=== PATIENT | female | born 1930 | race Caucasian/White ===

== ENCOUNTER 2022-05-17 17:25 | Inpatient (IN) | payer OTHER ==
[~2022-05-17] VITALS: Ht 142.2 cm; Wt 95.7 kg
[2022-05-17 17:42] VITALS: BP 175/78
--- NOTE | 2022-05-17 18:01 | NUR ---
89YO FEMALE PT C/O ACHING LOWER ABDOMINAL PAIN [id number]. PT STATES PAIN STARTED AFTER EATING GUAVA [id number] THIS MORNING. NOTES RECENT DX OF DIVERTICULITIS BY PCP. REPORTS VOMIT X1 , DENIES BLOOD. DENIES CHEST PAIN, DIARRHEA OR RELIEF AFTER TAKING OTC NAUSEA RX. ABDOMEN NON DISTENDED OR TENDER. MILD WEAKNESS NOTED, PT AMBULATORY USING CANE. AAOX4, RSPIRATIONS EVEN AND UNLABORED. HOB POSITIONED PER COMFORT, BED RAILS UPX2. CHILEAN SPEAKING HX: HTN, DIVERTICULITIS NKA
[2022-05-17] MEDS ORDERED: LEVOFLOXACIN 500 MG/D5W PREMIX 100 ML IV ONE (18:40)
--- NOTE | 2022-05-17 19:13 | NUR ---
REPORT GIVEN TO DECEMBER RN. ALL QUESTIONS ANSWERED. TRANSFER OF CARE AT THIS TIME
[2022-05-17 19:37] LABS: BASOPHILS # (AUTO) 0.1 K/uL (0.00-0.22); BASOPHILS % (AUTO) 0.3 % (0.0-2.0); EOSINOPHILS % (AUTO) 0.2 % (0.0-4.0); HEMATOCRIT 40.2 % (36-48); HEMOGLOBIN 13.2 g/dL (12.0-16.0); LYMPHOCYTES # (AUTO) 0.5 K/uL (2.5-16.5); MEAN CORPUSCULAR HEMOGLOBIN 29 pg (27-31); MEAN CORPUSCULAR HGB CONC 33 g/dL (33-37); MEAN CORPUSCULAR VOLUME 88.1 fL (80-94); MONOCYTES # (AUTO) 0.9 K/uL (0.8-1.0); MONOCYTES % (AUTO) 5.1 % (1.7-9.3); NEUTROPHILS # (AUTO) 15.9 K/uL (1.8-7.7); NEUTROPHILS % (AUTO) 91.4 % (42.2-75.2); PLATELET COUNT (AUTO) 349 K/uL (140-450); RED BLOOD CELL COUNT(AUTO) 4.56 MIL/uL (4.20-5.40); RED CELL DISTRIBUTION WIDTH 13.6 % (11.6-13.7); WHITE BLOOD COUNT (AUTO) 17.4 K/uL (4.8-10.8)
--- NOTE | 2022-05-17 19:43 | NUR ---
PT RETURN FROM CT
[2022-05-17 20:09] LABS: ALBUMIN 3.3 g/dL (3.4-5.0); ANION GAP 13.9 (8-16); ASPARTATE AMINOTRANSFERASE 239 U/L (15-37); CARBON DIOXIDE 28.1 mmol/L (21-32); CHLORIDE 100 mmol/L (98-107); GLUCOSE 113 mg/dL (74-106); LIPASE 6955 U/L (73-393); SODIUM SERUM 138 mmol/L (136-145); TOTAL BILIRUBIN 0.8 mg/dL (0.0-1.0); UREA NITROGEN, BLOOD 22 mg/dL (7-18)
--- NOTE | 2022-05-17 20:26 | NUR ---
CALL FROM DAUGHTER LYNNE WHO LEFT CONTACT INFO FOR UPDATES:
--- NOTE | 2022-05-17 20:36 | NUR ---
urine sample collected and sent to lab.
[2022-05-17 20:40] LABS: BILIRUBIN,URINE NEGATIVE (NEGATIVE); BLOOD, URINE NEGATIVE (NEGATIVE); COLOR,URINE YELLOW (YELLOW); LEUKOCYTE ESTERASE ,URINE TRACE (NEGATIVE); NITRITE, URINE NEGATIVE (NEGATIVE); UGLUCOSE NEGATIVE (NEGATIVE)
[2022-05-17 20:46] LABS: APPEARANCE,URINE HAZY (CLEAR)
[2022-05-17 20:53] LABS: RBC,URINE NONE SEEN /HPF (0-5); WBC,URINE 0-5 /HPF (0-5)
[2022-05-17] MEDS ORDERED: CIPR500T4 PO (21:25)
--- NOTE | 2022-05-17 21:49 | NUR ---
Dr. Deng examining patient.
--- NOTE | 2022-05-17 21:53 | NUR ---
COVID-19 swabs collected and sent to lab.
[2022-05-17] MEDS ORDERED: VALS160T2 PO (22:03)
[2022-05-17] MEDS ORDERED: ASPI-1749 PO (22:03)
[2022-05-17] MEDS ORDERED: ATOR10TA PO (22:03)
[2022-05-17] MEDS ORDERED: DETLA4 PO (22:03)
--- NOTE | 2022-05-17 22:03 | NUR ---
Med-Rec reviewed.
[2022-05-17] MEDS ORDERED: POTASSIUM CHLORIDE 10 MEQ TABER PO PRN (22:55)
[2022-05-17] MEDS ORDERED: HYDROcodone/APAP 5/325 MG 1 TAB TAB PO PRN (22:55)
[2022-05-17] MEDS ORDERED: LACTATED RINGERS 1,000 ML IV ONE (22:55)
[2022-05-17] MEDS ORDERED: NACL 0.9% 1,000 ML IV SCH (22:55)
[2022-05-17] MEDS ORDERED: MORPHINE SULFATE 4 MG/ML SYR IVP PRN (22:55)
--- NOTE | 2022-05-17 22:55 | NUR ---
Started IV 22 G LAC .
--- NOTE | 2022-05-18 00:02 | NUR ---
Patient will be admitted to care of Dr. Alas. Admited to TELE. Will go to room 121A. Belongings list completed. Report to Usama.
[2022-05-18 00:50] VITALS: BP 144/60
--- NOTE | 2022-05-18 00:50 | NUR ---
RECEIVED REPORT FROM ER NURSE NADER FOR CONTINUITY OF CARE. PATIENT IS A&O X4, PRIMARY LANGUAGE DUTCH, BUT CAN SPEAK AND UNDERSTANDS KOREAN. PATIENT IS ON ROOM AIR, BREATHING IS NORMAL WITH SYMMETRICAL RISE AND FALL OF CHEST. IV IS A 22G LAC, WITH NO FLUIDS ON FILE AT THIS TIME. ADMISSION VITALS ARE: TEMP 97.7, HR 72, BP 144/60, O2 97, RR 18. PATIENT HAS CANE FROM HOME SHE USES TO AMBULATE. BED IS IN LOWEST POSITION, WHEELS LOCKED, CALL LIGHT IN PLACE.
[2022-05-18] MEDS: LACTATED RINGERS 1,000 ML IV SCH ×6 (01:30→21:23)
[2022-05-18] MEDS ORDERED: LACTATED RINGERS 1,000 ML IV SCH (02:25)
--- NOTE | 2022-05-18 03:00 | NUR ---
HAD PAGED QUARTER BACKER PHYSICIAN DR. VITA FRANKEL BECAUSE PATIENT'S EMAR SHOWS NO MEDICATIONS. DR. FRANKEL INSTRUCTED TO GIVE PATIENT LR BOLUS AND THEN GIVE LR CONTINUOUS AT 125/HR. PUT ORDER IN AND STARTED BOLUS ONCE AUTHORIZED BY PHARMACY. PATIENT IS RESTING COMFORTABLY IN BED. WILL CONTINUE TO OBSERVE PATIENT.
[2022-05-18 04:00] VITALS: BP 160/75
--- NOTE | 2022-05-18 05:00 | NUR ---
NEW LR BAG WAS HUNG AND RUN AT 125ML/HR. PATIENT USED THE BATHROOM EARLIER AND WAS SHOWN HOW TO WALK WITH THE IV POLE. PATIENT WAS INSTRUCTED TO CALL WHEN NEEDING TO USE THE BATHROOM SO RN OR SERVICES PROGRAM MANAGER CAN ASSIST. PATIENT VERBALIZED UNDERSTANDING. WILL CONTINUE TO OBSERVE PATIENT.
[2022-05-18 05:27] LABS: BASOPHILS % (AUTO) 0.2 % (0.0-2.0); HEMATOCRIT 39.3 % (36-48); HEMOGLOBIN 13.1 g/dL (12.0-16.0); LYMPHOCYTES # (AUTO) 1.7 K/uL (2.5-16.5); LYMPHOCYTES % (AUTO) 10.8 % (20.5-51.1); MEAN CORPUSCULAR HEMOGLOBIN 29 pg (27-31); MEAN CORPUSCULAR HGB CONC 33 g/dL (33-37); MEAN CORPUSCULAR VOLUME 87.2 fL (80-94); MONOCYTES # (AUTO) 0.7 K/uL (0.8-1.0); MONOCYTES % (AUTO) 4.8 % (1.7-9.3); NEUTROPHILS % (AUTO) 84.2 % (42.2-75.2); PLATELET COUNT (AUTO) 336 K/uL (140-450); RED BLOOD CELL COUNT(AUTO) 4.51 MIL/uL (4.20-5.40); RED CELL DISTRIBUTION WIDTH 13.7 % (11.6-13.7); WHITE BLOOD COUNT (AUTO) 15.4 K/uL (4.8-10.8)
[2022-05-18 05:57] LABS: ALBUMIN 3.1 g/dL (3.4-5.0); ANION GAP 12.2 (8-16); ASPARTATE AMINOTRANSFERASE 127 U/L (15-37); CARBON DIOXIDE 28.8 mmol/L (21-32); CHLORIDE 101 mmol/L (98-107); GLUCOSE 97 mg/dL (74-106); MAGNESIUM 1.7 mg/dL (1.8-2.4); SODIUM SERUM 138 mmol/L (136-145); TOTAL BILIRUBIN 0.6 mg/dL (0.0-1.0); UREA NITROGEN, BLOOD 21 mg/dL (7-18)
--- NOTE | 2022-05-18 07:30 | NUR ---
RECEIVED REPORT FROM SHIPPING AND RECEIVING OPERATOR NURSE. PT A/O X4. ABLE TO MAKE NEEDS KNOWN. C/O ABDOMINAL PAIN, HOWEVER, REFUSES PAIN MED AT THIS TIME. PT IS NPO EXCEPT MEDS. TELE, SR. LR @ 125 ML/HR ON LAC #22. NEEDS ALL MET AT THIS TIME. ALL SAFETY MEASURES IN PLACE.
--- NOTE | 2022-05-18 07:40 | NUR ---
ENDORSED TO DAY SHIFT NURSE TYREL FOR CONTINUITY OF CARE. PATIENT IS STABLE.
[2022-05-18 08:00] VITALS: BP 134/59
[2022-05-18] MEDS: ONDANSETRON 4 MG/2 ML VIAL IVP PRN (09:02)
--- NOTE | 2022-05-18 09:02 | NUR ---
PT C/O NAUSEA. FLUSH 5ML NS ON LAC #22. PRN ZOFRAN GIVEN IVP. ANOTHER 5 ML NS FLUSH. IVF RESTARTED. NEEDS ALL MET AT THIS TIME. ALL SAFETY MEASURES IN PLACE.
[2022-05-18] MEDS: DOCUSATE SODIUM 100 MG GELCAP PO SCH (09:03)
--- NOTE | 2022-05-18 10:25 | NUR ---
PATIENT HAS BEEN SCREENED AND CATEGORIZED MODERATE NUTRITION RISK. PATIENT WILL BE SEEN WITHIN 3-5 DAYS OF ADMISSION. 05/17/22-05/22/[address]
[2022-05-18] MEDS: MAGNESIUM OXIDE 400 MG TAB PO PRN (10:46)
--- NOTE | 2022-05-18 10:50 | NUR ---
PRN MAG OX GIVEN P.O. WITH HOB ELEVATED HIGH FOWLERS. TOLERATED WELL. ALL NEEDS MET AT THIS TIME. ALL SAFETY MEASURES IN PLACE.
[2022-05-18 12:00] VITALS: BP 136/66
--- NOTE | 2022-05-18 12:30 | NUR ---
DC PLANNING SW MET WITH PT AT BEDSIDE TO COMPLETE ASSESSMENT. PATIENT IS PRIMARILY CANADIAN SPEAKING AND THE LANGUAGE LINE GREENHOUSE TRANSPLANTER HARMAN WAS UTILIZED. GREENHOUSE TRANSPLANTER ANDREW, [id number]. PATIENT REPORTS RESIDING AT HOME ALONE AT THE ADDRESS LISTED ON FILE. PATIENT IDENTIFIED TORRI CONTRERAS (SON) [phone] AND ÁNGEL ODONNELL (NIECE) [phone] EMERGENCY CONTACT. PATIENT DENIED AD IN PLACE AND DECLINED AD OFFERED BY SW. PATIENT REPORTS MEETING WITH HER PCP REGULARLY, LAST VISIT;2 WEEKS AGO. PATIENT IS MEDICATION COMPLIANT AND DENIES BARRIERS IN ACCESS TO NEEDED MEDICATION. PATIENT REPORTS RECEIVING MEDICATION FROM TWO PHARMACIES, [facility] WHICH DELIVERS MEDICATION AND [facility] IN [place] WHERE MEDIATION IS PICKED UP BU HER SON OR DAUGHTER IN LAW. PATIENT REPORTS BEING AMBULATORY WITH DME ASSISTANCE;CANE/FWW. PATIENT DENIES MH/SA HX. PATIENT REPORTS DC PLAN IS TO RETURN HOME WHEN MEDIALLY STABLE WITH SON PROVIDING TRANSPORTATION AND AIDING IN REQUIRED CARE IF NEEDED.
[2022-05-18] MEDS ORDERED: hydrALAZINE 20 MG/ML VIAL IVP PRN (13:40)
[2022-05-18 16:00] VITALS: BP 143/56
--- NOTE | 2022-05-18 17:30 | NUR ---
PT ASSISTED BY SHOES HAND SEWER TO AND FROM SHOWER. PT SITTING UP IN CHAIR. IN NO ACUTE DISTRESS. ON RA. ALL NEEDS MET. ALL SAFETY MEASURES IN PLACE.
--- NOTE | 2022-05-18 19:08 | NUR ---
REPORT GIVEN TO NIGHTSUTFT NURSE TATUM FOR CONTINUITY OF CARE.
[2022-05-18 20:00] VITALS: BP 140/60
--- NOTE | 2022-05-18 20:59 | NUR ---
FOR SURGERY SAMUEL BROWN - WILL INFORM MD . Addendum: 05/18/22 at 2101 by Mishel Mead RN INFORMED DR. PATEL Addendum: 05/19/22 at 0426 by Mishel Mead RN THE WORD HEPMICHAEL IN THE ABOVE NURSE'S NOTE IS AN ERROR ENTRY , INSTEAD OF HEPARIN - MNURLR Addendum: 05/19/22 at 0426 by Mishel Mead RN HOLD HEPARIN SQ - NO OBJECTION FROM DR. PATEL
--- NOTE | 2022-05-18 21:19 | NUR ---
RECIEVED W/ LR IVF ALMOST EMPTY - NO S/SX OF ACUTE DISTRESS NOTED - VOIDED FREELY .
--- NOTE | 2022-05-18 22:16 | NUR ---
PER DR. RUTLEDGE - JOHN RPT CBC , BLOOD CHEM , PTT SAMUEL AM - REVIEWED 'S ORDER - THERE IS AN ORDER FOR AM LABS SAMUEL 6 AM INCLUDING PTT . - WILL ENDORSE . Addendum: 05/19/22 at 0425 by Mishel Mead RN WILL INCLUDE PT AND INR .
--- NOTE | 2022-05-18 22:35 | NUR ---
CXR TAKEN AT BEDSIDE , REMINDS RT ON DUTY - PT FOR EKG - RT VERBALIZES UNDERSTANDING .
[2022-05-19] VITALS: BP 150/60
--- NOTE | 2022-05-19 | NUR ---
RE EMPHASIZE PT IS ON NPO - FOR SURGERY SAMUEL AT 1230 - PT VERBALIZES UNDERSTANDING , CALL LIGHT WITHIN REACH .
--- NOTE | 2022-05-19 02:00 | NUR ---
SLEEPING , CHEST RISE ANFD FALL EQUALLY . ON TELE MONITOR , CALL LIGHT WITHIN REACH
[2022-05-19 04:00] VITALS: BP 154/60
--- NOTE | 2022-05-19 04:00 | NUR ---
ROUNDS , NO COMPLAIN MADE , CALL LIGHT WITHIN REACH.
--- NOTE | 2022-05-19 06:00 | NUR ---
RESTING ON BED . NO COMPLAIN MADE , CALL LIGHT WITHIN REACH .
[2022-05-19 06:44] LABS: BASOPHILS % (AUTO) 0.4 % (0.0-2.0); EOSINOPHILS % (AUTO) 0.4 % (0.0-4.0); HEMATOCRIT 34.4 % (36-48); HEMOGLOBIN 11.6 g/dL (12.0-16.0); LYMPHOCYTES # (AUTO) 1.3 K/uL (2.5-16.5); LYMPHOCYTES % (AUTO) 14.1 % (20.5-51.1); MEAN CORPUSCULAR HEMOGLOBIN 29 pg (27-31); MEAN CORPUSCULAR HGB CONC 34 g/dL (33-37); MEAN CORPUSCULAR VOLUME 87.3 fL (80-94); MONOCYTES # (AUTO) 0.8 K/uL (0.8-1.0); MONOCYTES % (AUTO) 8.5 % (1.7-9.3); NEUTROPHILS % (AUTO) 76.6 % (42.2-75.2); PLATELET COUNT (AUTO) 285 K/uL (140-450); PROTHROMBIN TIME 10.7 secs (10.8-13.4); RED BLOOD CELL COUNT(AUTO) 3.95 MIL/uL (4.20-5.40); RED CELL DISTRIBUTION WIDTH 13.7 % (11.6-13.7); WHITE BLOOD COUNT (AUTO) 9.2 K/uL (4.8-10.8)
[2022-05-19 06:50] LABS: ALBUMIN 2.6 g/dL (3.4-5.0); ANION GAP 14.6 (8-16); ASPARTATE AMINOTRANSFERASE 51 U/L (15-37); CARBON DIOXIDE 27.1 mmol/L (21-32); CHLORIDE 105 mmol/L (98-107); CREATININE 0.8 mg/dL (0.6-1.3); GLUCOSE 93 mg/dL (74-106); MAGNESIUM 1.7 mg/dL (1.8-2.4); POTASSIUM 3.7 mmol/L (3.5-5.1); SODIUM SERUM 143 mmol/L (136-145); TOTAL BILIRUBIN 0.6 mg/dL (0.0-1.0); UREA NITROGEN, BLOOD 16 mg/dL (7-18)
--- NOTE | 2022-05-19 07:22 | NUR ---
ENDORSED - PT - STABLE - ENDORSED TO TYREL TO VERIFY TO DR. Hanh GOODRICH IF THE PT IS TOTALLY NPO OR NPO EXCEPTS MEDS - TYREL RN VERBALIZES UNDERSTANDING
--- NOTE | 2022-05-19 07:30 | NUR ---
RECEIVED REPORT FROM NIGHTSHIFT NURSE, TATUM. PT A/O X4. NO SOB OR RESPIRATORY DISTRESS. ON RA. DENIES PAIN. NPO. LAC #22 WITH LR @ 125 ML/HR. ALL NEEDS MET. ALL QUESTIONS ANSWERED. ALL SAFETY MEASURES IN PLACE.
[2022-05-19 08:00] VITALS: BP 148/52
--- NOTE | 2022-05-19 08:00 | NUR ---
CONTACTED DR. GOODRICH REGARDING PT'S MAGNESIUM LEVEL. ORDER FOR MAG RIDER. SEE EMAR FOR MEDICATION ADMINISTRATION.
[2022-05-19] MEDS ORDERED: MAG SULF 2000 MG/WATER PREMIX 50 ML IV SCH (08:11)
--- NOTE | 2022-05-19 08:59 | NUR ---
LATE ENTRY- IV LEVOFLOXACIN DISCONTINUED AT 0002.
[2022-05-19] MEDS: DOCUSATE SODIUM 100 MG GELCAP PO SCH (09:00)
[2022-05-19] MEDS: VALSARTAN 80 MG TAB PO SCH (09:09)
[2022-05-19] MEDS: LACTATED RINGERS 1,000 ML IV SCH ×2 (09:30→18:01)
[2022-05-19 12:00] VITALS: BP 140/48
--- NOTE | 2022-05-19 12:30 | NUR ---
PT RESTING COMFORTABLY. IN NO ACUTE DISTRESS. ON RA. ALL NEEDS MET AT THIS TIME. ALL SAFETY MEASURES IN PLACE.
--- NOTE | 2022-05-19 14:30 | NUR ---
FOLLOWED UP WITH SURGERY AND STATES SCHEDULED LAPAROSCOPIC CHOLECYSTECTOMY CANCELLED. MD DISCUSSED WITH PT AND PT AWARE. CONTACTED DR. GOODRICH REGARDING DIET ORDER. AWAITING REPLY.
[2022-05-19 16:00] VITALS: BP 142/50
[2022-05-19] MEDS: ACETAMINOPHEN 325 MG TAB PO PRN (16:58)
--- NOTE | 2022-05-19 18:16 | NUR ---
CONTACTED MD REGARDING IF MD WANTS TO PROGRESS DIET. DR. GOODRICH ORDER FOR CLEAR LIQUID DIET. PT IN NO DISTRESS. ON RA. DENIES PAIN. VSS. NEEDS ALL MET. ALL SAFETY MEASURES IN PLACE.
--- NOTE | 2022-05-19 19:09 | NUR ---
REPORT GIVEN TO [facility] NURSE BOLIVAR FOR CONTINUITY OF CARE.
--- NOTE | 2022-05-19 19:25 | NUR ---
REPORT RECEIVED FROM DAYSHIFT RN, CARE TAKEN OVER. VITAL SIGNS TAKEN, PT STATES SHE IS COMFORTABLE. PT JUST FINISHED HER CLEAR LIQUID DINNER. CALL LIGHT WITHIN REACH. WILL CONTINUE TO MONITOR.
[2022-05-19 20:00] VITALS: BP 161/74
--- NOTE | 2022-05-19 23:00 | NUR ---
INFORMED PATIENT ABOUT THE SCHEDULED SURGERY TOMORROW.PT VERBALIZED UNDERSTANDING.
[2022-05-20] VITALS: BP 141/52
[2022-05-20] MEDS: LACTATED RINGERS 1,000 ML IV SCH ×3 (02:23→18:05)
--- NOTE | 2022-05-20 02:40 | NUR ---
IV FLUIDS CHANGED. ASSISTED PATIENT TO RESTROOM. AMBULATED WITH STEADY GAIT. HELPED BACK TO BED.NO DISTRESS NOTED. ALL PRECAUTIONS IN PLACE. CALL LIGHT WITHIN REACH. WILL CONTINUE TO MONITOR.
[2022-05-20 04:00] VITALS: BP 150/65
[2022-05-20 06:47] LABS: BASOPHILS % (AUTO) 0.3 % (0.0-2.0); EOSINOPHILS # (AUTO) 0.1 K/uL (0-0.4); EOSINOPHILS % (AUTO) 1.1 % (0.0-4.0); HEMATOCRIT 32.9 % (36-48); LYMPHOCYTES # (AUTO) 1.3 K/uL (2.5-16.5); LYMPHOCYTES % (AUTO) 16.1 % (20.5-51.1); MEAN CORPUSCULAR HEMOGLOBIN 29 pg (27-31); MEAN CORPUSCULAR HGB CONC 34 g/dL (33-37); MEAN CORPUSCULAR VOLUME 87.3 fL (80-94); MONOCYTES # (AUTO) 0.7 K/uL (0.8-1.0); MONOCYTES % (AUTO) 8.1 % (1.7-9.3); NEUTROPHILS # (AUTO) 6.2 K/uL (1.8-7.7); NEUTROPHILS % (AUTO) 74.4 % (42.2-75.2); PLATELET COUNT (AUTO) 285 K/uL (140-450); RED BLOOD CELL COUNT(AUTO) 3.77 MIL/uL (4.20-5.40); RED CELL DISTRIBUTION WIDTH 13.7 % (11.6-13.7); WHITE BLOOD COUNT (AUTO) 8.3 K/uL (4.8-10.8)
--- NOTE | 2022-05-20 06:50 | NUR ---
PT STABLE. NO ACUTE S/SX OF DISTRESS AT THIS MOMENT. ALL NEEDS MET. ALL PRECAUTIONS IN PLACE.CALL LIGHT WITHIN REACH.WILL ENDORSE TO AM SHIFT NURSE.
[2022-05-20 06:56] LABS: ALBUMIN 2.5 g/dL (3.4-5.0); ANION GAP 11.9 (8-16); ASPARTATE AMINOTRANSFERASE 57 U/L (15-37); CHLORIDE 106 mmol/L (98-107); CREATININE 0.7 mg/dL (0.6-1.3); GLUCOSE 90 mg/dL (74-106); MAGNESIUM 1.9 mg/dL (1.8-2.4); POTASSIUM 3.9 mmol/L (3.5-5.1); SODIUM SERUM 143 mmol/L (136-145); TOTAL BILIRUBIN 0.4 mg/dL (0.0-1.0); UREA NITROGEN, BLOOD 13 mg/dL (7-18)
[2022-05-20] MEDS ORDERED: LIDOCAINE/EPI MPF 1%1:200000 30 ML VIAL INJ ONE (07:01)
[2022-05-20] MEDS ORDERED: BUPIVACAINE-MPF/EPI 0.5% 30 ML VIAL INJ ONE (07:01)
--- NOTE | 2022-05-20 07:30 | NUR ---
RECEIVED REPORT FROM NIGHTSDEFT NURSE OSMEL FOR CONTINUITY OF CARE. PT IN STABLE CONDITION AND CURRENTLY GETTING TRANSPORTED TO OR VIA BED FOR LAPAROSCOPIC CHOLECYSTECTOMY. PT IS A/OX4, BREATHING EVEN, REGULAR AND UNLABORED ON ROOM AIR. PT IS CONTINENT OF THE BOWELS AND BLADDER, AND AMBULATORY WITH MINOR ASSISTANCE. SKIN INTACT. NO SIGNS OF PAIN OR DISTRESS NOTED AT THIS TIME.
[2022-05-20] MEDS ORDERED: ONDANSETRON 4 MG/2 ML VIAL ONE (08:12)
[2022-05-20] MEDS ORDERED: SUCCINYLCHOLINE CHLORIDE 200 MG/10 ML VIAL IVP ONE (08:12)
[2022-05-20] MEDS ORDERED: ROCURONIUM 50 MG/5 ML VIAL IV ONE (08:12)
[2022-05-20] MEDS ORDERED: PROPOFOL 200 MG/20 ML VIAL IV ONE (08:12)
[2022-05-20] MEDS ORDERED: DEXAMETHASONE 4 MG/ML VIAL ONE (08:12)
[2022-05-20] MEDS ORDERED: fentaNYL citrate 0.05 MG/ML VIAL ONE (08:12)
[2022-05-20] MEDS ORDERED: ceFAZolin 1,000 MG VIAL ONE ×2 (08:14)
[2022-05-20] MEDS ORDERED: HYDROmorphone PFS 2 MG/ML SYR ONE (08:26)
[2022-05-20] MEDS ORDERED: ACETAMINOPHEN 100 ML IV ONE (08:34)
[2022-05-20] MEDS ORDERED: SUGAMMADEX SODIUM 200 MG/2 ML VIAL IV ONE (08:52)
[2022-05-20] MEDS ORDERED: LABETALOL 100 MG/20 ML VIAL ONE (08:52)
[2022-05-20] MEDS: VALSARTAN 80 MG TAB PO SCH (09:00)
[2022-05-20] MEDS: DOCUSATE SODIUM 100 MG GELCAP PO SCH (09:00)
[2022-05-20] MEDS ORDERED: hydrALAZINE 20 MG/ML VIAL ONE (09:01)
[2022-05-20] MEDS ORDERED: ONDANSETRON 4 MG/2 ML VIAL IVP PRN (09:15)
[2022-05-20] MEDS ORDERED: HYDROmorphone 1 MG/ML AMP IVP PRN (09:15)
--- NOTE | 2022-05-20 10:27 | NUR ---
PT RETURNED FROM OR, CURRENTLY SLEEPING AND ON 4L O2 VIA FACE MASK. NO SIGNS OF PAIN OR DISTRESS NOTED AT THIS TIME.
--- NOTE | 2022-05-20 10:30 | NUR ---
PT V/S WNL, STATED PAIN LEVEL IS CURRENTLY 5/10 IN RUQ OF ABDOMEN. PT ALSO COMPLAINED OF DIZZINESS, DENIED NAUSEA
--- NOTE | 2022-05-20 11:15 | NUR ---
PT STATED SHE WISHED TO SIT UP IN CHAIR, PT WAS ABLE TO MOVE WITH MINOR ASSISTANCE, WITH STEADY GAIT AND ABLE TO SIT UP STRAIGHT AND STABLE. ON ROOM AIR, PT DESATTED TO 89-90%. PT DENIED SOB, PAIN OR DISTRESS.
--- NOTE | 2022-05-20 11:40 | NUR ---
ASSISTED PT BACK INTO BED, PLACE HER ON 2L VIA NASAL CANNULA, SPO2 94%. PT DENIES PAIN AT THIS TIME.
[2022-05-20 12:00] VITALS: BP 126/58
--- NOTE | 2022-05-20 13:58 | NUR ---
VISUALLY ASSESSED PT, CURRENTLY SLEEPING. NO SIGNS OF PAIN OR DISTRESS NOTED. SPO2 98% ON 2L NC.
[2022-05-20] MEDS: HYDROmorphone 1 MG/ML AMP IVP PRN (15:05)
--- NOTE | 2022-05-20 15:05 | NUR ---
ASSISTED PT TO BEDSIDE COMMODE. AFTER PT AMBULATED BACK INTO BED, PAIN LEVEL IN RUQ WAS STATED AT 5/10. MEDICATED PRN DILAUDID.
[2022-05-20 16:00] VITALS: BP 151/62
--- NOTE | 2022-05-20 17:00 | NUR ---
PT VISUALLY ASSESSED, CURRENTLY SLEEPING. FAMILY AT THE BEDSIDE.
--- NOTE | 2022-05-20 19:39 | NUR ---
RECEIVED ENDORSEMENT FROM DAY SHIFT NURSE MARY FOR CONTINUITY OF CARE. PT IS ON BED, AWAKE, ALERT AND VERBALLY RESPONSIVE. PT IS USING O2 INHALATION AT 2 LPM VIA NASAL CANULA. PT IS ON CARDIAC DIET. IV SALINE LOCK ON LEFT HAND 20G AND LEFT AC 22G INTACT AND PATENT. SKIN INTACT. PT IS ON FALL RISK. PT HAD LAP JUAN PROCEDURE TODAY. CONTINUE TO MONITOR.
--- NOTE | 2022-05-20 19:40 | NUR ---
ENDORSED PT TO NIGHTSHIFT NURSE ODALYS FOR CONTINUITY OF CARE. PT IN STABLE CONDITION.
[2022-05-20 20:00] VITALS: BP 149/53
--- NOTE | 2022-05-20 20:00 | NUR ---
PT USE BED SIDE COMMODE WITH GET UP ASSIST.
[2022-05-20] MEDS: ACETAMINOPHEN 325 MG TAB PO PRN (20:45)
--- NOTE | 2022-05-20 21:01 | NUR ---
05/20/2022 RD INITIAL ASSESSMENT COMPLETED. PLEASE REFER TO NUTRITION ASSESSMENT UNDER CARE ACTIVITY FOR ESTIMATED NUTRITIONAL NEEDS. 1.CONTINUE WITH CARDIAC DIET 2.RECOMMEND PROSOURCE BID + ENSURE TO PROMOTE WOUND HEALING PER RD PROTOCOL. 3.MONITOR PO INTAKE AND WEIGHT 4.RD TO FOLLOW-UP IN 3-5 DAYS PATIENT IS MODERATE RISK. TYRONE GALICIA, RD
[2022-05-20] MEDS: PIPERACILLIN/TAZOBACTAM 3.375 GM in DEXTROSE 5% 50 ML IV SCH (21:44)
[2022-05-21] VITALS: BP 149/53
[2022-05-21] MEDS: LACTATED RINGERS 1,000 ML IV SCH ×3 (01:30→17:30)
--- NOTE | 2022-05-21 02:08 | NUR ---
PT WAKE UP AND USE BED SIDE COMMODE. NO SOB OR DISTRESS.
[2022-05-21] MEDS: HYDROcodone/APAP 5/325 MG 1 TAB TAB PO PRN ×2 (02:43→22:01)
[2022-05-21 04:00] VITALS: BP 141/50
[2022-05-21] MEDS: PIPERACILLIN/TAZOBACTAM 3.375 GM in DEXTROSE 5% 50 ML IV SCH ×3 (05:00→20:50)
[2022-05-21 07:09] LABS: BASOPHILS # (AUTO) 0.1 K/uL (0.00-0.22); BASOPHILS % (AUTO) 0.6 % (0.0-2.0); HEMATOCRIT 37.1 % (36-48); HEMOGLOBIN 12.3 g/dL (12.0-16.0); LYMPHOCYTES # (AUTO) 1.1 K/uL (2.5-16.5); LYMPHOCYTES % (AUTO) 7.7 % (20.5-51.1); MEAN CORPUSCULAR HEMOGLOBIN 29 pg (27-31); MEAN CORPUSCULAR HGB CONC 33 g/dL (33-37); MEAN CORPUSCULAR VOLUME 87.7 fL (80-94); MONOCYTES % (AUTO) 7.1 % (1.7-9.3); NEUTROPHILS # (AUTO) 12.1 K/uL (1.8-7.7); NEUTROPHILS % (AUTO) 84.6 % (42.2-75.2); PLATELET COUNT (AUTO) 334 K/uL (140-450); RED BLOOD CELL COUNT(AUTO) 4.23 MIL/uL (4.20-5.40); RED CELL DISTRIBUTION WIDTH 13.9 % (11.6-13.7); WHITE BLOOD COUNT (AUTO) 14.3 K/uL (4.8-10.8)
--- NOTE | 2022-05-21 07:40 | NUR ---
RECEIVED REPORT FROM [facility] [[email or web address] NURSE MORROW FOR CONTINUITY OF CARE. PT IN STABLE CONDITION I A/OX4, BREATHING EVEN, REGULAR AND UNLABORED ON ROOM AIR. PT IS CONTINENT OF THE BOWELS AND BLADDER, AND AMBULATORY WITH MINOR ASSISTANCE. SKIN INTACT. NO SIGNS OF PAIN OR DISTRESS NOTED AT THIS TIME. Addendum: 05/21/22 at 0754 by Georgina Richards RN IV ABX SECONDARY TUBING NOTED TO BE ON WRONG HUB FOR PUMP, [facility]RECT TUBING FOR SECONDARY LINE.
[2022-05-21 07:48] LABS: ALBUMIN 2.8 g/dL (3.4-5.0); ANION GAP 12.9 (8-16); ASPARTATE AMINOTRANSFERASE 90 U/L (15-37); CARBON DIOXIDE 29.7 mmol/L (21-32); CHLORIDE 103 mmol/L (98-107); GLUCOSE 108 mg/dL (74-106); MAGNESIUM 1.9 mg/dL (1.8-2.4); POTASSIUM 3.6 mmol/L (3.5-5.1); SODIUM SERUM 142 mmol/L (136-145); TOTAL BILIRUBIN 0.5 mg/dL (0.0-1.0)
[2022-05-21 08:00] VITALS: BP 153/53
[2022-05-21] MEDS: VALSARTAN 80 MG TAB PO SCH (08:34)
[2022-05-21] MEDS: DOCUSATE SODIUM 100 MG GELCAP PO SCH (08:35)
[2022-05-21] MEDS: HYDROmorphone 1 MG/ML AMP IVP PRN (08:36)
[2022-05-21] MEDS: ONDANSETRON 4 MG/2 ML VIAL IVP PRN (08:38)
--- NOTE | 2022-05-21 08:40 | NUR ---
PT WAS MEDICATED FOR PAIN AND NAUSEA WITH PRN ZOFRAN AND DILAUDID .
[2022-05-21 09:03] LABS: UREA NITROGEN, BLOOD 12 mg/dL (7-18)
--- NOTE | 2022-05-21 09:30 | NUR ---
PER DR GOODRICH PT CLEARED FOR DC FROM A SURGICAL STAND POINT. HE RECOMMENDS NO HEAVY LIFTING, TO FOLLOW UP IN 3-4 WKS AND TO BE DC WITH ANTIBIOTICS FOR BACTEREMIA
--- NOTE | 2022-05-21 10:50 | NUR ---
PT IS RESTING IN BED. NO SIGNS OF DISTRESS OR LABORED BREATHING
[2022-05-21 12:00] VITALS: BP 127/55
--- NOTE | 2022-05-21 12:50 | NUR ---
PT VISUALLY ASSESSED. CURRENTLY SLEEPING, NO SIGNS OF PAIN OR DISTRESS NOTED.
--- NOTE | 2022-05-21 14:00 | NUR ---
PER DR MAYA PT NEEDS A PT EVAL FOR POSSIBLE SNF PLACEMENT. CALLED SON GRAYSON AND NOTIFIED OF POSSIBLE SNF PLACEMENT, PER SON HE WOULD LIKE TO REQUEST SNF IN [place]. PT STILL SLEEPING, NO SIGNS OF DISTRESS OR LABORED BREATHING.
[2022-05-21 16:00] VITALS: BP 152/55
--- NOTE | 2022-05-21 18:54 | NUR ---
P.T. NOTES P.T. EVAL COMPLETED; REFER TO EVAL FOR DETAILS.
--- NOTE | 2022-05-21 19:15 | NUR ---
ENDORSEMENT OF CARE TO MOTORCYCLE POLICE NURSE JOEL RN FOR CONTINUITY OF CARE
--- NOTE | 2022-05-21 19:18 | NUR ---
RECEIVED REPORT FROM DAY SHIFT NURSE. NO S/S OF DISTRESS. CALL LIGHT IN REACH. ALL SAFETY MEASURES IN PLACE. SYMMETRICAL CHEST RISE AND FALL. IV RUNNING PER MD ORDER.
[2022-05-21 20:00] VITALS: BP 144/45
--- NOTE | 2022-05-21 21:00 | NUR ---
PT COMPLAINT OF DISCOMFORT. PT REPOSITIONED AND TRANSFERRED TO CHAIR WITH ASSISTANCE AT SIDE OF BED. NO S/S OF DISTRESS. CALL LIGHT IN REACH. ALL SAFETY MEASURES IN PLACE.
--- NOTE | 2022-05-21 22:02 | NUR ---
PT COMPLAINED OF PAIN 5/10. PRN ADMINISTERED PER MD ORDER. WILL CONTINUE TO MONITOR. ASSISTED PT TO BEDSIDE COMMODE AND BACK INTO BED. ALL SAFETY MEASURES IN PLACE. CALL LIGHT IN REACH
--- NOTE | 2022-05-21 23:57 | NUR ---
ASSISTED PT TO SITTING POSITION. PT COMPLAINT OF INABILITY TO SLEEP AFTER BEING WOKEN UP BY EVS. PT DOES NOT WANT ANY SLEEP MEDICATIONS STATING "IT'S TO LATE FOR PILLS". OFFERED BLANKETS AND COMMODE, REFUSED BY PT.CALL LIGHT IN REACH. ALL SAFETY MEASURES IN PLACE. DENIES PAIN AT THIS TIME
[2022-05-22] VITALS: BP 119/38
--- NOTE | 2022-05-22 02:40 | NUR ---
ASSISTED PT TO COMMODE
[2022-05-22 04:00] VITALS: BP 124/40
[2022-05-22] MEDS: LACTATED RINGERS 1,000 ML IV SCH ×2 (05:48→11:00)
[2022-05-22] MEDS: PIPERACILLIN/TAZOBACTAM 3.375 GM in DEXTROSE 5% 50 ML IV SCH ×2 (05:48→13:07)
--- NOTE | 2022-05-22 06:10 | NUR ---
PT RESTING IN BED. NO S/S OF DISTRESS. CALL LIGHT IN REACH. ALL SAFETY MEASURES IN PLACE. CHEST RISE AND FALL SYMMETRICAL. IV FLUIDS RUNNING PER MD ORDER
[2022-05-22 07:15] LABS: BASOPHILS % (AUTO) 0.3 % (0.0-2.0); EOSINOPHILS % (AUTO) 0.5 % (0.0-4.0); HEMATOCRIT 31.3 % (36-48); HEMOGLOBIN 10.7 g/dL (12.0-16.0); LYMPHOCYTES # (AUTO) 1.4 K/uL (2.5-16.5); LYMPHOCYTES % (AUTO) 14.3 % (20.5-51.1); MEAN CORPUSCULAR HEMOGLOBIN 30 pg (27-31); MEAN CORPUSCULAR HGB CONC 34 g/dL (33-37); MEAN CORPUSCULAR VOLUME 87.1 fL (80-94); NEUTROPHILS # (AUTO) 7.5 K/uL (1.8-7.7); NEUTROPHILS % (AUTO) 74.9 % (42.2-75.2); PLATELET COUNT (AUTO) 294 K/uL (140-450); RED BLOOD CELL COUNT(AUTO) 3.59 MIL/uL (4.20-5.40)
--- NOTE | 2022-05-22 07:16 | NUR ---
ENDORSED PT TO DAY SHIFT NURSE. ALL SAFETY MEASURES IN PLACE
[2022-05-22 07:23] LABS: ALBUMIN 2.1 g/dL (3.4-5.0); ANION GAP 10.3 (8-16); ASPARTATE AMINOTRANSFERASE 40 U/L (15-37); CARBON DIOXIDE 29.4 mmol/L (21-32); CHLORIDE 105 mmol/L (98-107); CREATININE 0.8 mg/dL (0.6-1.3); GLUCOSE 101 mg/dL (74-106); MAGNESIUM 1.3 mg/dL (1.8-2.4); POTASSIUM 3.7 mmol/L (3.5-5.1); SODIUM SERUM 141 mmol/L (136-145); TOTAL BILIRUBIN 0.4 mg/dL (0.0-1.0); UREA NITROGEN, BLOOD 13 mg/dL (7-18)
--- NOTE | 2022-05-22 07:30 | NUR ---
RECEIVED REPORT FROM NIGHTSSCFT NURSE. PT A/O X3. ABLE TO MAKE NEEDS KNOWN. NO SOB OR RESPIRATORY DISTRESS. ON RA. DENIES PAIN. CARDIAC DIET. BSC. LR @ 125 ML ON L FA #[id number]. NEEDS ALL MET AT THIS TIME. ALL SAFETY MEASURES IN PLACE. Addendum: 05/22/22 at 0811 by Agency 06 LAKEISHA RN ADDED NOTES
--- NOTE | 2022-05-22 07:31 | NUR ---
RECEIVED REPORT FROM NIGHTSHIFT NURSE. PT A/O X3. ABLE TO MAKE NEEDS KNOWN. NO SOB OR RESPIRATORY DISTRESS. ON RA. DENIES PAIN. CARDIAC DIET. BSC. LR @ 125 ML ON L FA #[id number]. LR STOPPED DUE TO SWELLING OF THE ARM. BANDAGE AND ARMBAND TAKEN OFF ON L ARM. NIGHTSHIFT NURSEONOFRE STATES, L HAND IV NO LONGER WORKING BUT STILL IN PLACE. PILLOW PLACED ON L ARM AND ELEVATED. NEEDS ALL MET AT THIS TIME. ALL SAFETY MEASURES IN PLACE.
[2022-05-22] MEDS: VALSARTAN 80 MG TAB PO SCH (08:48)
[2022-05-22] MEDS: DOCUSATE SODIUM 100 MG GELCAP PO SCH (08:48)
[2022-05-22] MEDS: ACETAMINOPHEN 325 MG TAB PO PRN (08:54)
--- NOTE | 2022-05-22 11:27 | NUR ---
CONTACTED MD REGARDING MAGNESIUM LEVEL. MD ORDER FOR 2 GM MAG SULFATE IVPB. ORDERS INPUTTED.
[2022-05-22] MEDS ORDERED: MAG SULF 2000 MG/WATER PREMIX 50 ML IV SCH (12:00)
[2022-05-22] MEDS ORDERED: CEPH-588 PO (12:04)
[2022-05-22 13:15] VITALS: BP 141/55
[2022-05-22] MEDS: MAGNESIUM OXIDE 400 MG TAB PO PRN (13:45)
--- NOTE | 2022-05-22 14:05 | NUR ---
DISCHARGE TEACHING GIVEN TO PT AND PT'S SON. PT AND PT'S SON VERBALIZED UNDERSTANDING. PT'S SON ALREADY PICKED UP PT'S MEDICATION AND AT BEDSIDE. IV DISCONTINUED, CATHETER INTACT, NO ACTIVE BLEEDING. PT WHEELED OUT VIA WHEELCHAIR WITH STUDENT NURSE, JAYCEE.
== END 2022-05-22 14:10 | disposition home or self-care (01) | DRG 853 ==
LOC: MED 17:25 → MTU 23:17 → OBSVTOIN 05-18 13:27
PROVIDERS: ADMIT Internal Medicine Pulmonary Disease; ATTEND Internal Medicine Pulmonary Disease
PROC: 0FT44ZZ Resection of Gallbladder, Percutaneous Endoscopic Approach (ICD-10-PCS; principal; 2022-05-20 07:30)
DX: A41.9 Sepsis, unspecified organism (principal); K85.10 Biliary acute pancreatitis without necrosis or infection; E44.0 Moderate protein-calorie malnutrition; Z68.41 Body mass index [BMI] 40.0-44.9, adult; K80.20 Calculus of gallbladder without cholecystitis without obstruction; E66.01 Morbid (severe) obesity due to excess calories; I10 Essential (primary) hypertension; E78.5 Hyperlipidemia, unspecified; Z20.822 Contact with and (suspected) exposure to COVID-19
CPT/HCPCS: 96365; 99285; G0378; 36415; 71045; 80053; 81001; 83605; 83690; 83735; 85025; 85610; 85730; 87040; 87081; 88304; 93005; 97112; 97116; 97530; J0330; J0360; J0690; J1100; J1170; J1644; J1956; J2001; J2405; J2543; J2704; J3010; J3475; J3490; J7030; J7060; Q0092